=== PATIENT | female | born 1960 ===

== ENCOUNTER 2024-02-27 06:31 | Day surgery (SDC) | payer OTHER ==
[~2024-02-27 06:31] MED LIST: ATORVASTATIN CA10 MG PO; JARDIANCE10 MG PO; METFORMIN HCL1000 M2 PO; NORVASC2.5 MG PO; RYVENT6 MG PO; ZESTORETIC 20-1 EAC1 PO
== END 2024-02-27 16:10 | disposition home or self-care (01) ==
LOC: CIR.AMB 06:31
PROVIDERS: ATTEND Obstetrics & Gynecology
DX: N84.0 Polyp of corpus uteri (principal); E11.9 Type 2 diabetes mellitus without complications; I10 Essential (primary) hypertension; J45.909 Unspecified asthma, uncomplicated; Z85.038 Personal history of other malignant neoplasm of large intestine